=== PATIENT | female | born 1980 | race Caucasian/White ===

== ENCOUNTER 2017-01-25 09:29 | Day surgery (SDC) | payer SELFPAY ==
[~2017-01-25] VITALS: Ht 167.6 cm; Wt 117.4 kg
--- NOTE | ~2017-01-25 | OR ---
PATIENT'S NAME: SANDRA VALDEZ [facility] AGE: 36 Y [address] ROOM: [place] [address] LOCATION: [facility] [place] ADMIT DATE: 01/25/2017 OR/Procedure Report DISCHARGE DATE: 01/26/2017 FAMILY PHYSICIAN: PHYSICIAN, LUIS M ATTENDING PHYSICIAN: Lilly Qiu SURGEON: Lilly Qiu MD PHARMACY INFORMATICS MANAGER: Marcelo Jason CST. DATE OF PROCEDURE: 01/25/2017 PREOPERATIVE DIAGNOSIS: Painful thoracic spine hardware. POSTOPERATIVE DIAGNOSIS: Painful thoracic spine hardware. PROCEDURES PERFORMED: Removal of thoracic spine hardware. ANESTHESIA: General. ANESTHESIA PROVIDER: Guadalupe Jasmine MD. HISTORY: This patient is a 36-year-old female, who underwent instrumented fusion for thoracic spine fracture at T12. Surgery was performed in 2006. Lately, the patient has been complaining of back pains, and she could feel the hardware rubbing on the inside of her back. With it being 10 years since her surgery, I felt that fusion was complete or was not going to happen any longer, and the hardware could be removed if it was beginning to cause symptoms. I explained the procedure, risks, and benefits to the patient, and with her consent, she was brought to the Operating Room for surgery. PROCEDURE IN DETAIL: In the Operating Room, the patient was placed in a supine position. Anesthesia was induced and she was intubated. She was then rolled to a prone position on a Hai table, taking care to protect all pressure points. The incision line was marked out in the middle of her back, corresponding to where she had the surgery done. The whole area was then prepped and draped in a sterile fashion. Local anesthesia was infiltrated. The #10-blade was used to open the incision. The incision was deepened to the thoracic fascia. Self-retaining retractors were placed. The fascia was opened, and the muscles were retracted laterally. Dissection continued until we were able to see the screw heads. The screw heads were then exposed completely. Appropriate instruments were used to remove the caps from the screw heads and the connecting rods were removed. The screws themselves were then extracted. PATIENT'S NAME: SANDRA VALDEZ [facility] AGE: 36 Y [address] ROOM: [place] [address] LOCATION: [facility] [place] ADMIT DATE: 01/25/2017 OR/Procedure Report DISCHARGE DATE: 01/26/2017 FAMILY PHYSICIAN: PHYSICIAN, NO ATTENDING PHYSICIAN: Lilly Qiu There was some bleeding around the areas where the screws had been inserted, and this bleeding was controlled with bipolar coagulation. Irrigation was used to wash out the debris. There was no gross instability seen at the time of the surgery. WOUND CLOSURE: The incision was closed in layers using appropriate suture materials. A sterile dressing was applied. POSTOPERATIVE CONDITION: The patient's anesthesia was reversed. She was rolled back to a supine position. She was extubated and taken back to the Recovery Room to complete her recovery. ATTESTATION: I was present at and performed every aspect of this procedure, assisted at some stages by Operating Room nurses. COMPLICATIONS: There were no apparent intraoperative complications. COUNT RESULTS: Swabs, needles, and instruments were all accounted for at the end of the case. ESTIMATED BLOOD LOSS: Less than 100 mL. There was no reason for blood transfusion. CONCLUSION: I expect the patient's pain to improve, now that the hardware has been removed. MD PADMINI [email or web address] /[id number] d: 01/25/170 t: 02/04/17 1844, OPERATIVE SUMMARY
[~2017-01-25 09:29] MED LIST: PERCOCET 5-3251 EACH PO
--- NOTE | 2017-01-25 18:50 | NUR ---
Significant Event: TO ROOM AT 1430, HAD ISSUES WITH PAIN CONTROL, CRYING YELLING, CSM GOOD ALL EXTRM. BACK JAMESG D/I, HAD VALIUM ,DILAUDID,,, PERCOCET IN PACU, HAD MORPHINE 4 MG IV AT 1450. HAD PERCOCET 2 TABS LAST AT 1730...HAS VOIDED X3 ON COMMMODE, UP WITH 1 ASSIST.... Follow up:
--- NOTE | 2017-01-26 04:08 | NUR ---
POD#1 REMOVAL OF HARDWARE FROM T SPINE, INCISION CDI WITH ISLAND DSG, NEUROS WNL, UP TO BATHROOM WITH SBA AND VOIDS WELL, RIGHT HAND PIV SALINE LOCKED, PAIN CONTROLLED WITH PERCOCET LD@0130, VALIUM LD@2000 AND WILL REASSESS FOR PAIN MGT BEFORE SHIFT CHANGE, PATIENT WITH CHRONIC PAIN HISTORY AND DEALS WELL WITH PAIN 5/10. GOOD PO INTAKE/OUTPUT NO BM THIS SHIFT.
[2017-01-26] MEDS ORDERED: VALIUM10 MG PO (09:50)
[2017-01-26] MEDS ORDERED: PERCOCET 5-3251 EACH PO (09:51)
== END 2017-01-26 13:25 | disposition disaster alternative care site (69) ==
LOC: G3N 09:29 → GSDC 09:29 → EDSTATUS 13:00 → G3N 14:10 → GSDC 01-26 13:25
PROC: 00PV0JZ Removal of Synthetic Substitute from Spinal Cord, Open Approach (ICD-10-PCS; principal; 2017-01-25)
DX: T84.84XA Pain due to internal orthopedic prosthetic devices, implants and grafts, initial encounter (principal); F17.200 Nicotine dependence, unspecified, uncomplicated; Z98.890 Other specified postprocedural states
CPT/HCPCS: J0690; J1100; J1170; J2001; J2250; J2270; J2405; J3360; J7120

== ENCOUNTER → 2017-02-18 | Outpatient (CLI) | payer SELFPAY ==
[~2017-02-18] MED LIST changes: +VALIUM10 MG PO
== END | disposition disaster alternative care site (69) ==
LOC: GRAD 02-13 08:00
DX: M54.9 Dorsalgia, unspecified (principal)